=== PATIENT | male | born 1930 | race Caucasian/White ===

== ENCOUNTER 2017-07-06 23:02 | Inpatient (IN) | payer MEDICARE ==
[~2017-07-06] VITALS: Ht 185.4 cm; Wt 103.4 kg
[2017-07-06 00:15] VITALS: BP 117/72
--- NOTE | 2017-07-06 23:15 | NUR ---
Pt karolina from [facility] for medical clearance prior to admission to MHU. Pt calm and cooperative. Oriented to name. Pt able to answer simple yes and no questions and follow simple commands. Pt seen by Dr. Anderson, awaiting further orders.
--- NOTE | 2017-07-06 23:30 | NUR ---
PT STATES NO MEDS
--- NOTE | 2017-07-06 23:32 | NUR ---
FAMILY REPORTS THAT PT HAS HX OF NON-HODGKINS LYMPHOMA AND TREATED WITH CHEMO AT AGE 76.ALSO HAD LAMINECTOMY AT AGE 80. AND HIP REPLACEMENT AT 82
--- NOTE | 2017-07-07 00:02 | NUR ---
Pt medically cleared for MHU admission. Report called to ALMITA Moss. Preparing to transfer pt to the floor.
--- NOTE | 2017-07-07 06:46 | NUR ---
ADMISSION NOTE Patient is an 86 yr old male admitted from [facility] on a 5150 for Grave Disability, Danger to Others and Danger to self starting 07/06/17 @1800. According to medical records provided by [facility] Patient was taken to ER by police after patient was reported to have crossed the center divider of the [facility] free[place]. Patient was found confused, with two loaded guns, stating he was on his way to [place]. Patient admitted under the care of Dr. Hernandez and Dr. Kenney. Dr. Blanca covering psychiatrist accepted patient, No medications reported due to patient unable to recall current medications. Labs done at [facility] no labs ordered by ER on admission.
[2017-07-07 07:30] VITALS: BP 144/91
--- NOTE | 2017-07-07 12:38 | NUR ---
GPS RN NOTE: 1230: PT STRONGLY REFUSED SEROQUEL 12.5. OFFERED X2, EXPLAINED RISK AND BENEFITS. PT STILL REFUSED. STATED "I DON'T NEED TO TAKE THAT PILL AND I DON'T NEED TO BE HERE"
[2017-07-07 17:06] VITALS: BP 124/65
--- NOTE | 2017-07-07 18:05 | NUR ---
LEFT MESSAGE TO PT'S SON WESLEY TO GIVE US A CALL REGARDING LIST OF HOME MEDICATIONS IF ANY.
[2017-07-07 20:19] VITALS: BP 127/66
--- NOTE | 2017-07-08 05:59 | NUR ---
GPS/NSG Fransisco Landeros called back, stated he had no idea what his father's medication regimen was, stated his father was closed in about that information. Suggested to try to get the name of his fathers General practitioner in [place], [place] where the pt. currently resides.
[2017-07-08 07:30] VITALS: BP 111/64
[2017-07-08 07:43] LABS: BASOPHILS % (AUTO) 0.5 % (0.0-2.0); EOSINOPHILS # (AUTO) 0.2 K/uL (0.0-0.7); HEMATOCRIT 45.3 % (40-50); HEMOGLOBIN 15.4 G/DL (14.0-18.0); LYMPHOCYTES # (AUTO) 1.1 K/UL (0.8-4.8); LYMPHOCYTES % (AUTO) 14.4 % (20.5-51.5); MEAN CORPUSCULAR HEMOGLOBIN 31.2 UUG (27.0-31.0); MEAN CORPUSCULAR HGB CONC 34 g/dL (32.0-37.0); MONOCYTES # (AUTO) 0.6 K/UL (0.1-1.30); MONOCYTES % (AUTO) 8.4 % (0.0-11.0); NEUTROPHILS # (AUTO) 5.8 K/UL (1.8-8.9); NEUTROPHILS % (AUTO) 73.7 % (38.5-71.5); PLATELET COUNT (AUTO) 207 K/UL (150-450); RED BLOOD CELL COUNT(AUTO) 4.92 MIL/UL (4.7-6.1); WHITE BLOOD COUNT (AUTO) 7.7 K/UL (4.0-11.2)
[2017-07-08 07:50] LABS: ALANINE AMINOTRANSFERASE 24 U/L (16-63); ALKALINE PHOSPHATASE 72 U/L (50-136); ASPARTATE AMINOTRANSFERASE 22 U/L (15-37); BILIRUBIN,TOTAL 0.6 mg/dL (0.2-1.0); CARBON DIOXIDE 28 mmol/L (21-32); CHLORIDE 105 mmol/L (98-107); CREATININE 1.5 mg/dL (0.6-1.3); GLUCOSE 109 mg/dL (74-106); POTASSIUM 4.2 mmol/L (3.5-5.1); TOTAL PROTEIN, SERUM 7.6 g/dL (6.4-8.2); UREA NITROGEN, BLOOD 29 mg/dL (7-18)
[2017-07-08 09:41] LABS: THYROID STIMULATING HORMONE 2.338 mIU/mL (0.358-3.740)
[2017-07-08 15:05] LABS: *BILIRUBIN,URIN NEGATIVE (NEGATIVE); *BLOOD, URINE NEGATIVE (NEGATIVE); *CLARITY,URINE CLEAR (CLEAR); *COLOR,URINE YELLOW (YELLOW); *KETONES,URINE NEGATIVE (NEGATIVE); *PROTEIN,URINE 1+ (NEGATIVE); *UROBILINOGEN,URINE 0.2 E.U./dl (NORMAL); LEUKOCYTE ESTERASE ,URINE NEGATIVE (NEGATIVE); NITRITE, URINE NEGATIVE (NEGATIVE); PH,URINE 5.5 (5.0-8.0); UGLUCOSE NEGATIVE (NEGATIVE)
[2017-07-08 15:45] LABS: *CREATININE,URINE 92.6 mg/dL (30-125)
[2017-07-08 16:00] VITALS: BP 143/84
[2017-07-08 17:01] LABS: MUCUS,URINE FEW /LPF (0-FEW); SQUAMOUS EPITHELIAL CELL,UR FEW /HPF (NONE SEEN); WBC,URINE 0-3 /HPF (0-3)
--- NOTE | 2017-07-08 19:00 | NUR ---
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 PT IS CONFUSED AND FORGETFUL. 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 NEEDED SECURITY TO ESCORT PT BACK TO HIS ROOM. PT STATED THAT SINCE WE PRINTED INFORMATION ABOUT ATIVAN THAT HE WOULD TAKE MEDS, BUT ONCE HE WAS OFFERED THEM HE REFUSED ATIVAN DESPITE EXPLANATION OF NEED AND SIDE EFFECTS. "IM NOT A CHILD, I HAVE BEEN DOING THIS MY ENTIRE LIFE AND IM NOT A PATIENT HERE. YOU TAKE THE MEDICATIONS, NOT ME"
[2017-07-08 20:35] VITALS: BP 144/80
[2017-07-09 07:29] VITALS: BP 123/76
[2017-07-09 07:49] LABS: BASOPHILS % (AUTO) 0.5 % (0.0-2.0); EOSINOPHILS # (AUTO) 0.2 K/uL (0.0-0.7); EOSINOPHILS % (AUTO) 3.3 % (0.0-7.0); HEMATOCRIT 41.9 % (40-50); HEMOGLOBIN 14.1 G/DL (14.0-18.0); LYMPHOCYTES % (AUTO) 16.4 % (20.5-51.5); MEAN CORPUSCULAR HEMOGLOBIN 30.6 UUG (27.0-31.0); MEAN CORPUSCULAR HGB CONC 34 g/dL (32.0-37.0); MEAN CORPUSCULAR VOLUME 91.3 FL (82.0-92.0); MONOCYTES # (AUTO) 0.7 K/UL (0.1-1.30); MONOCYTES % (AUTO) 10.6 % (0.0-11.0); NEUTROPHILS # (AUTO) 4.2 K/UL (1.8-8.9); NEUTROPHILS % (AUTO) 69.2 % (38.5-71.5); PLATELET COUNT (AUTO) 197 K/UL (150-450); RED BLOOD CELL COUNT(AUTO) 4.59 MIL/UL (4.7-6.1); WHITE BLOOD COUNT (AUTO) 6.1 K/UL (4.0-11.2)
[2017-07-09 08:02] LABS: ALANINE AMINOTRANSFERASE 20 U/L (16-63); ALKALINE PHOSPHATASE 58 U/L (50-136); ASPARTATE AMINOTRANSFERASE 19 U/L (15-37); BILIRUBIN,TOTAL 0.5 mg/dL (0.2-1.0); CARBON DIOXIDE 27 mmol/L (21-32); CHLORIDE 109 mmol/L (98-107); CREATINE KINASE, TOTAL 142 U/L (39-308); CREATININE 1.5 mg/dL (0.6-1.3); GLUCOSE 101 mg/dL (74-106); MAGNESIUM 1.9 mg/dL (1.8-2.4); PHOSPHOROUS 3.2 mg/dL (2.5-4.9); POTASSIUM 3.9 mmol/L (3.5-5.1); TOTAL PROTEIN, SERUM 6.5 g/dL (6.4-8.2); UREA NITROGEN, BLOOD 32 mg/dL (7-18)
--- NOTE | 2017-07-09 09:14 | NUR ---
Pt refused to take Seroquel dose this morning. pt states " I will not take any medication until a doctor comes in and explains to me why I need it... you're not a doctor." Pt agreed on topical medication but nothing oral. Pt continues to refuse showering. pt denies depression, SI,HI, and AVH. pt remains confused with moments of clarity. Pt compliant with wearing mask when leaving room. Continue to monitor for safety.
--- NOTE | 2017-07-09 11:29 | NUR ---
Initial discharge instructions: Pt resides at home alone [[address],[place],[address]].Pt resides in [place] and is unable to report any family/friend contact.He has no family to contact and/or discuss discharge plans with.SW will speak with pt and MD regarding appropriate discharge plans.SW will form a safe and proper discharge plan.
--- NOTE | 2017-07-09 15:02 | NUR ---
pt continues to be confused, forgetful, and need frequent redirection. frequently argues that he is not a patient here and that we need to let him go. keeps talking in circles asking for a meeting with the solar sales energy advisor, because all he has met is busboys. continues to refuse medications "i dont need any medications, so you should take it."
[2017-07-09 17:06] VITALS: BP 124/82
[2017-07-09 20:26] VITALS: BP 134/73
[2017-07-10 07:36] VITALS: BP 167/78
--- NOTE | 2017-07-10 08:42 | NUR ---
offered morning medications to patient but strongly refused in spite of the explanations.Patient stated "Don't bother to give any medications until you bring a US sports attorney."
[2017-07-10 10:11] LABS: A/G RATIO 1.5 (0.7-1.7); ALBUMIN 3.5 g/dL (2.9-4.4); ALPHA-1-GLOBULIN 0.2 g/dL (0.0-0.4); ALPHA-2-GLOBULIN 0.7 g/dL (0.4-1.0); BETA GLOBULIN 0.8 g/dL (0.7-1.3); GAMMA GLOBULIN 0.8 g/dL (0.4-1.8); GLOBULIN, TOTAL 2.4 g/dL (2.2-3.9); M-SPIKE Not Observed g/dL (Not Observed)
[2017-07-10 16:40] VITALS: BP 150/79
[2017-07-11 07:30] VITALS: BP 115/58
--- NOTE | 2017-07-11 12:12 | NUR ---
Patient refused zyprexa 2.5mg PO , patient was reised today. IM back up zyprexa 2.5mg was given at 1133.
[2017-07-11 15:04] VITALS: BP 124/70
--- NOTE | 2017-07-11 18:06 | NUR ---
Patient took his PM medication zyprexa zydis 2.5mg PO with less prompting, showered today, no aggressive behavior noted. Will continue to monitor for safety and needs.
[2017-07-11 20:25] VITALS: BP 128/77
[2017-07-12 07:24] LABS: BASOPHILS # (AUTO) 0.1 K/uL (0.0-8.0); BASOPHILS % (AUTO) 0.8 % (0.0-2.0); EOSINOPHILS # (AUTO) 0.2 K/uL (0.0-0.7); EOSINOPHILS % (AUTO) 2.8 % (0.0-7.0); HEMATOCRIT 44.8 % (40-50); HEMOGLOBIN 15.1 G/DL (14.0-18.0); LYMPHOCYTES # (AUTO) 1.1 K/UL (0.8-4.8); LYMPHOCYTES % (AUTO) 14.1 % (20.5-51.5); MEAN CORPUSCULAR HGB CONC 34 g/dL (32.0-37.0); MEAN CORPUSCULAR VOLUME 91.6 FL (82.0-92.0); MONOCYTES # (AUTO) 0.7 K/UL (0.1-1.30); MONOCYTES % (AUTO) 8.3 % (0.0-11.0); NEUTROPHILS # (AUTO) 5.8 K/UL (1.8-8.9); PLATELET COUNT (AUTO) 196 K/UL (150-450); RED BLOOD CELL COUNT(AUTO) 4.89 MIL/UL (4.7-6.1); WHITE BLOOD COUNT (AUTO) 7.9 K/UL (4.0-11.2)
[2017-07-12 07:30] VITALS: BP 137/64
[2017-07-12 07:49] LABS: ALANINE AMINOTRANSFERASE 19 U/L (16-63); ALKALINE PHOSPHATASE 65 U/L (50-136); ASPARTATE AMINOTRANSFERASE 18 U/L (15-37); BILIRUBIN,TOTAL 0.4 mg/dL (0.2-1.0); CARBON DIOXIDE 32 mmol/L (21-32); CHLORIDE 109 mmol/L (98-107); CREATININE 1.4 mg/dL (0.6-1.3); GLUCOSE 116 mg/dL (74-106); PHOSPHOROUS 3.2 mg/dL (2.5-4.9); POTASSIUM 4.5 mmol/L (3.5-5.1); UREA NITROGEN, BLOOD 29 mg/dL (7-18)
[2017-07-12 20:22] VITALS: BP 116/63
[2017-07-12 22:00] VITALS: BP 148/85
--- NOTE | 2017-07-12 22:00 | NUR ---
PT RECEIVED FROM MHU VIA WHEELCHAIR. A/OX2. ABLE TO MAKE NEEDS KNOWN. V/S STABLE. IN NO ACUTE DISTRESS. NO C/O PAIN AT THIS TIME. ISOLATION FOR MRSA NARES IN PLACE. 1:1 SITTER AT BEDSIDE FOR SAFETY. SAFETY MEASURES IMPLEMENTED. CALL LIGHT WITHIN REACH. WILL CONT TO MONITOR.
--- NOTE | 2017-07-12 22:00 | NUR ---
GPS: TX: PATIENT TO 2ND FLOOR ROOM 223 MED SURG OVERFLOW. VIA W/C ,PATIENT IS A/O X3 AMBULATORY. ON CONTACT ISOLATION FOR MRSA NARES. COMPLIANT WITH HS MEDS. NO AGITATION NOTED THIS TIME.V/S WNL.NO PAIN OR SOB REPORTED. REPORT GIVEN TO ALFREDITO RECIO.
[2017-07-13 04:00] VITALS: BP 127/71
--- NOTE | 2017-07-13 05:45 | NUR ---
PT SLEPT MOST OF THE NIGHT. CONT TO HAVE 1:1 SITTER AT BEDSIDE FOR SAFETY. ALL NEEDS ATTENDED. SAFETY MAINTAINED. CALL LIGHT WITHIN REACH.
[2017-07-13 10:00] VITALS: BP 147/75
--- NOTE | 2017-07-13 12:56 | NUR ---
PT COMPLIANT WITH MED ADMINISTRATION, STATES NEED TO MAKE PHONE CALL TO [employer]. SITS AT BEDSIDE, CONTINUALLY TALKS TO SELF. 1:1 SITTER AT BEDSIDE. CONTACT ISOLATION MAINTAINED
[2017-07-13 15:00] VITALS: BP 144/82
--- NOTE | 2017-07-13 18:32 | NUR ---
NO CHANGES THROUGHOUT SHIFT, PT REMAINED PLEASANT AND MED COMPLIANT. ISOLATION AND 1:1 SITTER MAINTAINED. CALL LIGHT IN REACH
[2017-07-13 19:30] VITALS: BP 139/58
--- NOTE | 2017-07-13 19:35 | NUR ---
PT RECEIVED IN BED, AWAKE. PLEASANT ON APPROACH. A/OX2. ABLE TO MAKE NEEDS KNOWN. 1:1 SITTER AT BEDSIDE FOR SAFETY. SAFETY MEASURE IMPLEMENTED. CALL LIGHT WITHIN REACH.
[2017-07-14 04:59] VITALS: BP 146/74
--- NOTE | 2017-07-14 06:00 | NUR ---
END OF SHIFT NOTES. PT SLEPT WELL THROUGHOUT SHIFT. 1:1 SITTER AT BEDSIDE FOR SAFETY. ISOLATION MAINTAINED. ALL NEEDS ATTENDED. SAFETY MAINTAINED.
[2017-07-14 08:17] VITALS: BP 131/73
[2017-07-14 16:12] VITALS: BP 157/75
[2017-07-14 20:09] VITALS: BP 156/76
--- NOTE | 2017-07-15 | NUR ---
Pt up on side of bed requesting ronitich. Denies any pain, headaches, shortness of breathe, or discomfort at this time. 1 on 1 sitter at bedside.
[2017-07-15 05:20] VITALS: BP 147/85
--- NOTE | 2017-07-15 06:44 | NUR ---
Pt alert, awake in room. No acute distress or pain noted. Able to void without difficulty. States he wants to talk to the fbi regarding a meeting. Unable to describe exact details at this time. Able to sleep only two and a half hours between 0000 and 0600. Able to ambulate with FWW without difficulty.
[2017-07-15 07:03] LABS: BASOPHILS % (AUTO) 0.4 % (0.0-2.0); EOSINOPHILS # (AUTO) 0.2 K/uL (0.0-0.7); EOSINOPHILS % (AUTO) 3.2 % (0.0-7.0); HEMATOCRIT 45.2 % (40-50); HEMOGLOBIN 15.4 G/DL (14.0-18.0); LYMPHOCYTES % (AUTO) 13.7 % (20.5-51.5); MEAN CORPUSCULAR HGB CONC 34 g/dL (32.0-37.0); MEAN CORPUSCULAR VOLUME 90.9 FL (82.0-92.0); MONOCYTES # (AUTO) 0.6 K/UL (0.1-1.30); MONOCYTES % (AUTO) 8.8 % (0.0-11.0); NEUTROPHILS # (AUTO) 5.3 K/UL (1.8-8.9); NEUTROPHILS % (AUTO) 73.9 % (38.5-71.5); PLATELET COUNT (AUTO) 223 K/UL (150-450); RED BLOOD CELL COUNT(AUTO) 4.98 MIL/UL (4.7-6.1); WHITE BLOOD COUNT (AUTO) 7.1 K/UL (4.0-11.2)
[2017-07-15 07:24] LABS: ALANINE AMINOTRANSFERASE 22 U/L (16-63); ALKALINE PHOSPHATASE 66 U/L (50-136); ASPARTATE AMINOTRANSFERASE 21 U/L (15-37); BILIRUBIN,TOTAL 0.4 mg/dL (0.2-1.0); CARBON DIOXIDE 26 mmol/L (21-32); CHLORIDE 104 mmol/L (98-107); CREATININE 1.5 mg/dL (0.6-1.3); GLUCOSE 106 mg/dL (74-106); MAGNESIUM 1.9 mg/dL (1.8-2.4); PHOSPHOROUS 3.2 mg/dL (2.5-4.9); POTASSIUM 4.2 mmol/L (3.5-5.1); TOTAL PROTEIN, SERUM 7.3 g/dL (6.4-8.2); UREA NITROGEN, BLOOD 32 mg/dL (7-18)
--- NOTE | 2017-07-15 08:06 | NUR ---
pt refusing vitals at this time will try again
[2017-07-15 08:23] VITALS: BP 136/75
[2017-07-15 15:40] VITALS: BP 141/71
--- NOTE | 2017-07-15 18:53 | NUR ---
NO CHANGES NOTED THROUGHOUT SHIFT, CONTACT ISOLATION AND 1:1 SITTER MAINTAINED, CALL LIGHT IN REACH
--- NOTE | 2017-07-15 19:00 | NUR ---
Pt alert awake and oriented to self and date of . 1 on 1 sitter at bedside. BP 118/73. 95% RA. Call light placed within reach. Socks applied. No pain noted at this time.
[2017-07-15 20:00] VITALS: BP 118/73
--- NOTE | 2017-07-16 01:00 | NUR ---
Pt asleep at this time. Temazepam effective with no agitation or insomnia present. No acute distress noted.
--- NOTE | 2017-07-16 08:00 | NUR ---
Awake, alert, oriented x 3, forgetful, able to verbalize needs appropriately, pleasant and calm. 1:1 sitter at bedside
[2017-07-16 12:00] VITALS: BP 133/71
--- NOTE | 2017-07-16 12:00 | NUR ---
With fair appetite. Calm and cooperative with care
[2017-07-16 16:00] VITALS: BP 156/67
--- NOTE | 2017-07-16 18:58 | NUR ---
No suicidal ideation. 1:1 sitter at bedside.
--- NOTE | 2017-07-16 19:00 | NUR ---
RECD PT IN BED,ALERT AND ABLE TO MAKE NEEDS KNOWN,SITTER AT BEDSIDE, ON 1:1 SITTER ,52/50 GRAVELY DISABLE ,HOLD IS UP ON 07/23/17.ON CONTACT ISOLATION FOR MRSA NARES, PRECAUTIONARY MEASURES OBSERVED.RESTIN FAIRLY WELL .
[2017-07-16 19:50] VITALS: BP 142/69
--- NOTE | 2017-07-16 22:00 | NUR ---
RECEIVED SBAR REPORT FROM RACHELLE/MAINTENANCE OF WAY SUPERVISOR,PT'S A/A/O X3-4 ON BED REST COMFORTABLY,DENIED OF PAIN.1:1 SITTER @ ALL TIMES FOR SAFETY.PER PT STATED THAT"I CAN'T SLEEP";OFFERED PT FOR SLEEPING PILL AND HE AGREED,WILL GIVE IT.SKIN CARE TO PT;EDUCATED TO PT;HE VERBALIZED UNDERSTANDING AND COOPERATIVE NOTED.KEPT COMFORT,CLOSELY MONITORING TO PT.
--- NOTE | 2017-07-17 06:00 | NUR ---
PT'S SITTING ON BED;DENIED OF PAIN BUT STATED THAT "I DON'T NEED ANYTHING ELSE";LATER PT REQUESTED TO TAKE A SHOWER;AFTER THAT HE FELT BETTER.PT'S ABLE TO SLEEP FOR 2 HOURS IN THE SHIFT.REPEATED MRSA NARES PROTOCOL;EDUCATED TO PT;HE'S COOPERATIVE NOTED.1:1 SITTER AT THE BEDSIDE.
--- NOTE | 2017-07-17 07:45 | NUR ---
PT IN BED WITH EYES CLOSED, AWAKENS UPON ENTRY. IN NO ACUTE DISTRESS, VERY PLEASANT. ACCORDING TO DIRECTOR OF INSTITUTIONAL SALES, ONLY SLEPT 2 HOURS AND WAS AGITATED EARLIER THIS AM, HAD A SHOWER AND IS NOW IN A BETTER MOOD. NO NEEDS AT THIS TIME, CONTACT ISOLATION MAINTAINED, REPEAT MRSA SENT. 1:1 SITTER AT BEDSIDE
[2017-07-17 08:00] VITALS: BP 138/70
[2017-07-17 11:17] VITALS: BP 113/74
[2017-07-17 15:03] VITALS: BP 148/71
--- NOTE | 2017-07-17 17:52 | NUR ---
PT MORE AGITATED THEN EARLIER, EXPLAINED WHAT THE MEDICATIONS WERE FOR AND THE SIDE EFFECTS WERE EXPLAINED TO PATIENT. PT TOOK ZYPREXA BUT ASKED TO LEAVE DEPAKENE AT BEDSIDE. I TOLD THE PATIENT THAT I COULD NOT LEAVE THE MEDICATION AND THAT HE HAD TO TAKE IT WITH ME IN THE ROOM HE BEGAN TO GET AGITATED, DEMANDING TO SPEAK TO HIS PHYSICIAN. NAME OF PHYSICIAN WAS GIVEN BUT COULD NOT RECALL PHONE NUMBER. EXPLAINED TO PATIENT THAT IF MEDICATION WAS NOT TAKEN, AN INJECTION WOULD BE GIVEN ORDERED. PT THREW HANDS IN THE AIR AND AGREED TO TAKE THE MEDICATION.
[2017-07-17 19:33] VITALS: BP 152/70
--- NOTE | 2017-07-17 20:00 | NUR ---
AWAKE,ALERT UP AND ABOUT IN BED.SITTER AT BEDSIDE BILATERAL GROIN RED NYSTATIN OINTMENT APPLIED.RESTING COMFORTABLY.IN NO ACUTE DISTRESS.
--- NOTE | 2017-07-18 06:00 | NUR ---
slept most of the nite
[2017-07-18 06:05] VITALS: BP 121/66
[2017-07-18 07:31] VITALS: BP 139/71
--- NOTE | 2017-07-18 08:00 | NUR ---
RECEIVED AWAKE ALERT COOPERATIVE, 1:1 SITTER AT BED SIDE
[2017-07-18 11:38] VITALS: BP 139/94
--- NOTE | 2017-07-18 12:11 | NUR ---
dr cotter visiting
[2017-07-18 15:30] VITALS: BP 150/81
--- NOTE | 2017-07-18 17:34 | NUR ---
PATIENT HAS FREQUENT CONVERSATIONS WITH SELF OR SOMEONE NOT IN ROOM ATTEMPT TO REDIRECT
--- NOTE | 2017-07-18 18:35 | NUR ---
ALL NEEDS MET STABLE ON Q1 HOUR ROUNDS, CARDIO VASCULAR STATUS STABLE, ISOLATION MAINTAINED, FALL PRECAUTIONS MAINTAINED
[2017-07-18 19:24] VITALS: BP 124/64
--- NOTE | 2017-07-18 20:00 | NUR ---
AWAKE ALERT X1 COOPERATIVE .RESTING COMFORTABLY,SITTER AT BEDSIDE.IN NO ACUTE DISTRESS.NO COMPLAINTS MADE.
[2017-07-19 04:05] VITALS: BP 120/61
--- NOTE | 2017-07-19 05:33 | NUR ---
SLEPT AT LONG INTERVALS.TALKING TO HIMSELF. SITTER AT BEDSIDE.
--- NOTE | 2017-07-19 07:26 | NUR ---
RECEIVED AWAKE ALERT TO NAME, 1:1 SITTER AT BEDSIDE, SAFETY PRECAUTIONS MAINTAINED
[2017-07-19 08:00] VITALS: BP 124/69
--- NOTE | 2017-07-19 11:20 | NUR ---
report received from Selene RECIO and took over care, awake alert on the phone, on 1;1 sitter, safety measures maintained
[2017-07-19 15:29] VITALS: BP 132/60
--- NOTE | 2017-07-19 16:00 | NUR ---
sitting at the edge of bed, talking to himself or to someone that is not there with him, tried to redirect, pleasant and appreciative, contact isolation for MRSA of nares maintained, on 1:1 sitter, appetite good and taking fluids well
--- NOTE | 2017-07-19 18:19 | NUR ---
resting, no aggressive behavior noted, compliant with meds and care, no distress noted, sitter in the room
[2017-07-19 19:27] VITALS: BP 122/64
--- NOTE | 2017-07-19 19:40 | NUR ---
PT RECEIVED IN BED, AWAKE. A/OX1. ABLE TO MAKE NEEDS KNOWN. 1:1 SITTER AT BEDSIDE FOR SAFETY. V/S STABLE. IN NO ACUTE DISTRESS. NO C/O PAIN AT THIS TIME. SAFETY MEASURES IMPLEMENTED. CALL LIGHT WITHIN REACH.
[2017-07-20 05:49] VITALS: BP 125/64
--- NOTE | 2017-07-20 05:52 | NUR ---
END OF SHIFT NOTES. PT SLEPT WELL THROUGHOUT SHIFT. 1:1 SITTER AT BEDSIDE FOR SAFETY. IN STABLE CONDITION. ISOLATION PRECAUTIONS MAINTAINED. ALL NEEDS ATTENDED. SAFETY MAINTAINED. CALL LIGHT WITHIN REACH.
[2017-07-20 06:41] LABS: BASOPHILS % (AUTO) 0.6 % (0.0-2.0); EOSINOPHILS # (AUTO) 0.3 K/uL (0.0-0.7); EOSINOPHILS % (AUTO) 3.7 % (0.0-7.0); HEMATOCRIT 43.5 % (36.7-47.1); HEMOGLOBIN 14.9 g/dL (12.5-16.3); LYMPHOCYTES % (AUTO) 14.3 % (20.5-51.5); MEAN CORPUSCULAR HEMOGLOBIN 31.4 uug (23.8-33.4); MEAN CORPUSCULAR HGB CONC 34 g/dL (32.5-36.3); MEAN CORPUSCULAR VOLUME 91.4 fL (73.0-96.2); MONOCYTES # (AUTO) 0.7 K/uL (2.0-10.0); MONOCYTES % (AUTO) 10.6 % (0.0-11.0); NEUTROPHILS # (AUTO) 4.8 K/uL (1.8-8.9); NEUTROPHILS % (AUTO) 70.8 % (38.5-71.5); PLATELET COUNT (AUTO) 195 K/uL (152-348); RED BLOOD CELL COUNT(AUTO) 4.76 MIL/uL (4.06-5.63); WHITE BLOOD COUNT (AUTO) 6.8 K/uL (3.6-10.2)
[2017-07-20 06:54] LABS: ALANINE AMINOTRANSFERASE 21 U/L (16-63); ALKALINE PHOSPHATASE 70 U/L (50-136); ASPARTATE AMINOTRANSFERASE 17 U/L (15-37); BILIRUBIN,TOTAL 0.5 mg/dL (0.2-1.0); CARBON DIOXIDE 32 mmol/L (21-32); CHLORIDE 106 mmol/L (98-107); CREATININE 1.5 mg/dL (0.6-1.3); GLUCOSE 100 mg/dL (74-106); POTASSIUM 4.1 mmol/L (3.5-5.1); TOTAL PROTEIN, SERUM 7.4 g/dL (6.4-8.2); UREA NITROGEN, BLOOD 27 mg/dL (7-18); VALPROIC ACID 18 ug/mL (50-100)
[2017-07-20 08:00] VITALS: BP 135/68
[2017-07-20 15:25] VITALS: BP 140/68
--- NOTE | 2017-07-20 19:36 | NUR ---
PATIENT SITTING BED, WATCHING TV. PATIENT PLEASANT AND CALM AND INTERACTIVE.NO BEHAVIORAL ISSUES NOTED. NO C/ PAIN OR ANY DISCOMFORT. 1:1 SITTER AT THE BED SIDE.WILL CONTINUE TO MONITOR.
[2017-07-20 20:00] VITALS: BP 141/63
--- NOTE | 2017-07-21 06:36 | NUR ---
PATIENT AWAKE MOST OF THE NIGHT , TALKING . NO BEHAVIORAL ISSUES NOTED, SLEPT FOR 2 HRS. 1:1 SITTER AT THE BED SIDE. CONTINUING ON CONTINUING ON CONTACT ISOLATION FOR MRSA OF NARES
[2017-07-21 07:22] VITALS: BP 99/66
[2017-07-21 12:03] VITALS: BP 118/62
[2017-07-21 15:44] VITALS: BP 139/72
--- NOTE | 2017-07-21 19:30 | NUR ---
PATIENT , SITTING ON BED , CALM AND COOPERATIVE, WATCHING TV. TALKING WITHOUT ANY CONNECTING IDEAS. 1:1 SITTER AT THE BED SIDE
[2017-07-21 19:58] VITALS: BP 134/65
--- NOTE | 2017-07-22 06:56 | NUR ---
PATIENT AWAKE MOST OF THE NIGHT, TALKING. SLEPT F0R 1 HR. CONTACT ISOLATION FOR MRSA OF NARES OBSERVED. 1:1 SITTER AT THE BED SIDE FOR SAFETY. NO BEHAVIORAL ISSUES NOTED DURING THE SHIFT
[2017-07-22 07:38] VITALS: BP 136/66
[2017-07-22 11:29] VITALS: BP 147/59
[2017-07-22 15:11] VITALS: BP 133/68
[2017-07-22 19:47] VITALS: BP 135/63
--- NOTE | 2017-07-23 03:37 | NUR ---
RECEIVED PATIENT SITTING COMFORTABLY IN BED. HE WAS REFUSING TO TAKE MEDS LAST NIGHT NEEDED ENCOURAGEMENT AND REDIRECTION. TALKING ABOUT TO TAKE THE PRESIDENT'S CALL AND RELAY THE MESSAGE TO HIM. HE SLEPT ON AND OFF, WOKE UP PACING IN THE ROOM GOT MAD TO THE STAFF WHEN APPROACHED. OTHERWISE NO SIGNS OF THREAT TO HIMSELF AND OTHERS. VITAL SIGNS ARE STABLE. 1:1 SITTER AT BEDSIDE.
[2017-07-23 08:54] VITALS: BP 145/63
--- NOTE | 2017-07-23 10:28 | NUR ---
DC Note: Patient will be discharged today to [facility] [[address] [place] [address]; ] via ambulance at 12:00 pm. Spoke with Марина at the facility who stated they would accept the patient today. Spoke with patient's son, Fransisco [phone] who is aware and agreeable with discharge plans. Patient will follow up with (Psychiatrist) and (Molding And Trim Installer) at the facility.
[2017-07-23 11:43] VITALS: BP 117/61
--- NOTE | 2017-07-23 13:59 | NUR ---
Discharge instructions given to patient. Report given to LACI RECIO from [facility]. Belongings given and opened infront of patient with BROACH OPERATOR at bedside. Valuables signed. Pt is in no acute distress. Pt cooperative. Pt aware of discharge plan and instructions. Pictures update on pts skin issues. Pt refused vaccination.
== END 2017-07-23 13:45 | DRG 885 ==
LOC: ER 23:02 → GPS 23:45 → GPSOV 07-12 22:09
PROVIDERS: ADMIT Psychiatry & Neurology Psychosomatic Medicine; ATTEND Internal Medicine
DX: F23 Brief psychotic disorder (principal); N17.0 Acute kidney failure with tubular necrosis; N18.9 Chronic kidney disease, unspecified; E44.1 Mild protein-calorie malnutrition; F03.90 Unspecified dementia, unspecified severity, without behavioral disturbance, psychotic disturbance, mood disturbance, and anxiety; Z85.72 Personal history of non-Hodgkin lymphomas; Z22.322 Carrier or suspected carrier of Methicillin resistant Staphylococcus aureus; L21.0 Seborrhea capitis; Z91.14 Patient's other noncompliance with medication regimen; E88.09 Other disorders of plasma-protein metabolism, not elsewhere classified; Z68.30 Body mass index [BMI] 30.0-30.9, adult; Z96.649 Presence of unspecified artificial hip joint; N28.1 Cyst of kidney, acquired; Z87.81 Personal history of (healed) traumatic fracture; E78.5 Hyperlipidemia, unspecified; Z92.21 Personal history of antineoplastic chemotherapy; Z98.890 Other specified postprocedural states
CPT/HCPCS: 36415; 76770; 80164; 83735; 83970; 84100; 84155; 84156; 84165; 84300; 84443; 85025; 87086; A4663; J2358

== ENCOUNTER 2017-11-08 17:05 | Inpatient (IN) | payer MEDICARE, MEDICAID ==
[~2017-11-08] VITALS: Ht 182.9 cm; Wt 93.9 kg
[2017-11-08] MEDS ORDERED: MAGN400O6 PO (17:13)
[2017-11-08] MEDS ORDERED: DOCU100C36 PO (17:13)
[2017-11-08] MEDS ORDERED: DONE5TAB7 PO (17:13)
[2017-11-08] MEDS ORDERED: ACET325T53 PO (17:13)
[2017-11-08 18:00] LABS: BASOPHILS % (AUTO) 0.6 % (0.0-2.0); EOSINOPHILS # (AUTO) 0.3 K/uL (0.0-0.7); EOSINOPHILS % (AUTO) 4.9 % (0.0-7.0); HEMATOCRIT 38.9 % (36.7-47.1); HEMOGLOBIN 13.2 g/dL (12.5-16.3); LYMPHOCYTES # (AUTO) 1.1 K/uL (20.0-40.0); LYMPHOCYTES % (AUTO) 16.4 % (20.5-51.5); MEAN CORPUSCULAR HEMOGLOBIN 30.6 uug (23.8-33.4); MEAN CORPUSCULAR HGB CONC 34 g/dL (32.5-36.3); MEAN CORPUSCULAR VOLUME 89.7 fL (73.0-96.2); MONOCYTES # (AUTO) 0.7 K/uL (2.0-10.0); MONOCYTES % (AUTO) 10.3 % (0.0-11.0); NEUTROPHILS # (AUTO) 4.7 K/uL (1.8-8.9); NEUTROPHILS % (AUTO) 67.8 % (38.5-71.5); PLATELET COUNT (AUTO) 254 K/uL (152-348); RED BLOOD CELL COUNT(AUTO) 4.33 MIL/uL (4.06-5.63)
[2017-11-08 18:07] LABS: ALANINE AMINOTRANSFERASE 26 U/L (16-63); ALKALINE PHOSPHATASE 77 U/L (50-136); ASPARTATE AMINOTRANSFERASE 27 U/L (15-37); BILIRUBIN,DIRECT 0.1 mg/dL (0.0-0.2); CARBON DIOXIDE 26 mmol/L (21-32); CHLORIDE 104 mmol/L (98-107); CREATININE 1.7 mg/dL (0.6-1.3); GLUCOSE 102 mg/dL (74-106); POTASSIUM 4.1 mmol/L (3.5-5.1); TOTAL PROTEIN, SERUM 7.7 g/dL (6.4-8.2); UREA NITROGEN, BLOOD 30 mg/dL (7-18)
[2017-11-08 18:10] LABS: *BILIRUBIN,URIN NEGATIVE (NEGATIVE); *BLOOD, URINE NEGATIVE (NEGATIVE); *CLARITY,URINE CLEAR (CLEAR); *COLOR,URINE YELLOW (YELLOW); *KETONES,URINE NEGATIVE (NEGATIVE); *PROTEIN,URINE NEGATIVE (NEGATIVE); *UROBILINOGEN,URINE 0.2 E.U./dl (NORMAL); LEUKOCYTE ESTERASE ,URINE NEGATIVE (NEGATIVE); NITRITE, URINE NEGATIVE (NEGATIVE); PH,URINE 5.5 (5.0-8.0); UGLUCOSE NEGATIVE (NEGATIVE)
[2017-11-08 18:11] LABS: ACETAMINOPHEN < 2.0 ug/mL (10-30)
[2017-11-08 18:13] LABS: ETHANOL < 3 MG/DL (0-0)
[2017-11-08 18:27] LABS: SQUAMOUS EPITHELIAL CELL,UR FEW /HPF (NONE SEEN); WBC,URINE 0-3 /HPF (0-3)
[2017-11-08 18:28] LABS: MUCUS,URINE MANY /LPF (0-FEW)
[2017-11-08 18:30] LABS: BILIRUBIN,TOTAL 0.2 mg/dL (0.2-1.0)
[2017-11-08 18:32] LABS: *AMPHETAMINE, URINE NEGATIVE (NEGATIVE); *BARBITURATE, URINE NEGATIVE (NEGATIVE); *CANNABINOID, URINE NEGATIVE (NEGATIVE); *COCCAINE, URINE NEGATIVE (NEGATIVE); *OPIATE, URINE NEGATIVE (NEGATIVE); *PHENCYCLIDINE SCREEN,URINE NEGATIVE (NEGATIVE)
--- NOTE | 2017-11-08 18:37 | NUR ---
pt transfered to mhu in stable condition.
--- NOTE | 2017-11-08 18:45 | NUR ---
RECEIVED FOR ADMISSION 87 YEARS OLD MALE FROM ED BY PATRICIA TO ROOM 139 B PLACED UP ON THE CHAIR WEIGHED AND VITALS CHECKED PATIENT IS ALERT AND ORIENTED COOPERATIVE STATED THAT HE ALREADY INFORMED HIS FRIEND THAT HE IS HERE AND WHEN ASKED TO PROVIDE NAMES AND PHONE NUMBERS SO THAT I CAN FOLLOW UP HE STATED THAT HE DID NOT WANT ANYONE NOTIFIED THAT HE IS HERE.SANWISHES GIVEN FOR DINNER AND HE IS SITTING ON THE CHAIR IN THE HALLWAY EATING HIS DINNER ADMISSION OF THIS PATIENT ENDORSED.
[2017-11-08] MEDS ORDERED: MAGNESIUM HYDROXIDE 30 ML LIQUID UDC PO PRN (19:15)
[2017-11-08] MEDS ORDERED: ACETAMINOPHEN 325 MG TABLET PO PRN (19:15)
[2017-11-08] MEDS ORDERED: MAG HYDROX/AL HYDROX/SIMETH 30 ML LIQUID UDC PO PRN (19:15)
[2017-11-08 21:17] VITALS: BP 126/52
[2017-11-08] MEDS: TEMAZEPAM 7.5 MG CAPSULE PO PRN (22:06)
--- NOTE | 2017-11-08 23:00 | NUR ---
received to care, on a 72 hour hold, for gravely disabled, from the emergency room, a transfer from [facility]. 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 upon arrival, he was cooperative, but anxious, stating once again that he is not a patient there, and is here only for a medical screening for his new job. has poor insight. difficult to redirect, or orient to reality. PRN restoril was given at 2206, and, as of 2299. he appears to be asleep. no distress noted. will continue to monitor closely.
[2017-11-09 07:30] VITALS: BP 135/69
[2017-11-09] MEDS: DOCUSATE SODIUM 100 MG CAPSULE PO SCH (08:48)
[2017-11-09 08:57] LABS: BASOPHILS % (AUTO) 0.5 % (0.0-2.0); EOSINOPHILS # (AUTO) 0.4 K/uL (0.0-0.7); HEMATOCRIT 40.2 % (36.7-47.1); HEMOGLOBIN 13.8 g/dL (12.5-16.3); LYMPHOCYTES # (AUTO) 0.9 K/uL (20.0-40.0); LYMPHOCYTES % (AUTO) 14.3 % (20.5-51.5); MEAN CORPUSCULAR HGB CONC 34 g/dL (32.5-36.3); MEAN CORPUSCULAR VOLUME 90.2 fL (73.0-96.2); MONOCYTES # (AUTO) 0.5 K/uL (2.0-10.0); MONOCYTES % (AUTO) 8.2 % (0.0-11.0); NEUTROPHILS # (AUTO) 4.5 K/uL (1.8-8.9); PLATELET COUNT (AUTO) 243 K/uL (152-348); RED BLOOD CELL COUNT(AUTO) 4.46 MIL/uL (4.06-5.63); WHITE BLOOD COUNT (AUTO) 6.4 K/uL (3.6-10.2)
[2017-11-09 09:31] LABS: ALANINE AMINOTRANSFERASE 27 U/L (16-63); ALKALINE PHOSPHATASE 72 U/L (50-136); ASPARTATE AMINOTRANSFERASE 27 U/L (15-37); BILIRUBIN,TOTAL 0.5 mg/dL (0.2-1.0); CARBON DIOXIDE 25 mmol/L (21-32); CHLORIDE 107 mmol/L (98-107); CREATININE 1.4 mg/dL (0.6-1.3); GLUCOSE 110 mg/dL (74-106); MAGNESIUM 1.8 mg/dL (1.8-2.4); PHOSPHOROUS 3.2 mg/dL (2.5-4.9); POTASSIUM 3.9 mmol/L (3.5-5.1); TOTAL PROTEIN, SERUM 7.4 g/dL (6.4-8.2); UREA NITROGEN, BLOOD 27 mg/dL (7-18)
[2017-11-09 16:00] VITALS: BP 120/53
--- NOTE | 2017-11-09 16:38 | NUR ---
Initial Discharge Note:Pt resides at [facility] ([address] [place] [address]; ). BRENNEN spoke to Марина at [facility] and she stated that the pt can come back. BRENNEN will follow up with MD and patient to discuss most appropriate dc plans. SW will form a safe and proper discharge. Pt does not want his son involved in his dc planning.
[2017-11-09] MEDS ORDERED: TRIAMCINOLONE ACET 0.5% CREAM 15 GM TUBE TP SCH (17:00)
[2017-11-09] MEDS: risperiDONE 0.25 MG TABLET PO SCH (17:14)
[2017-11-09] MEDS: BENZTROPINE MESYLATE 0.5 MG TABLET PO SCH (17:14)
[2017-11-09] MEDS: TRIAMCINOLONE ACET 0.1% CREAM 15 GM TUBE TP SCH (17:35)
[2017-11-09] MEDS: LORAZEPAM 0.5 MG TABLET PO PRN (20:34)
--- NOTE | 2017-11-09 20:35 | NUR ---
gps: patient stated i want go home. i don't like to be hear. banging on the bed side table. ativan 0.5 mg po given.
[2017-11-09 20:50] VITALS: BP 107/75
--- NOTE | 2017-11-09 21:35 | NUR ---
GPS: PATIENT IS CALM NOW. PRN EFFECTIVE FOR AGITATION.
--- NOTE | 2017-11-10 06:24 | NUR ---
GPS: REMAIN CALM AND COOPERATIVE AFTER ATIVAN 0.5 MG PO GIVEN @ 20:35 PM. SLEPT 6 HRS THROUGH THE NIGHT.
[2017-11-10 07:30] VITALS: BP 132/69
[2017-11-10] MEDS: risperiDONE 0.25 MG TABLET PO SCH ×2 (08:34→16:36)
[2017-11-10] MEDS: BENZTROPINE MESYLATE 0.5 MG TABLET PO SCH ×2 (08:34→16:36)
[2017-11-10] MEDS: TRIAMCINOLONE ACET 0.1% CREAM 15 GM TUBE TP SCH ×2 (08:37→16:36)
[2017-11-10] MEDS: DOCUSATE SODIUM 100 MG CAPSULE PO SCH (08:54)
[2017-11-10] MEDS: CHOLECALCIFEROL 1,000 UNIT TABLET PO SCH (12:19)
[2017-11-10 15:04] LABS: BASOPHILS % (AUTO) 0.5 % (0.0-2.0); EOSINOPHILS # (AUTO) 0.4 K/uL (0.0-0.7); EOSINOPHILS % (AUTO) 6.8 % (0.0-7.0); HEMATOCRIT 39.7 % (36.7-47.1); HEMOGLOBIN 13.4 g/dL (12.5-16.3); LYMPHOCYTES # (AUTO) 0.8 K/uL (20.0-40.0); LYMPHOCYTES % (AUTO) 14.8 % (20.5-51.5); MEAN CORPUSCULAR HEMOGLOBIN 30.3 uug (23.8-33.4); MEAN CORPUSCULAR HGB CONC 34 g/dL (32.5-36.3); MEAN CORPUSCULAR VOLUME 89.9 fL (73.0-96.2); MONOCYTES # (AUTO) 0.5 K/uL (2.0-10.0); NEUTROPHILS # (AUTO) 3.9 K/uL (1.8-8.9); NEUTROPHILS % (AUTO) 68.9 % (38.5-71.5); PLATELET COUNT (AUTO) 226 K/uL (152-348); RED BLOOD CELL COUNT(AUTO) 4.42 MIL/uL (4.06-5.63); WHITE BLOOD COUNT (AUTO) 5.6 K/uL (3.6-10.2)
[2017-11-10 15:14] LABS: ALANINE AMINOTRANSFERASE 26 U/L (16-63); ALKALINE PHOSPHATASE 68 U/L (50-136); ASPARTATE AMINOTRANSFERASE 24 U/L (15-37); BILIRUBIN,TOTAL 0.3 mg/dL (0.2-1.0); CARBON DIOXIDE 31 mmol/L (21-32); CHLORIDE 106 mmol/L (98-107); CREATINE KINASE, TOTAL 227 U/L (39-308); CREATININE 1.3 mg/dL (0.6-1.3); GLUCOSE 122 mg/dL (74-106); MAGNESIUM 2.1 mg/dL (1.8-2.4); PHOSPHOROUS 3.5 mg/dL (2.5-4.9); TOTAL PROTEIN, SERUM 6.9 g/dL (6.4-8.2); UREA NITROGEN, BLOOD 26 mg/dL (7-18)
[2017-11-10 16:49] VITALS: BP 141/63
[2017-11-10 20:24] VITALS: BP 101/59
[2017-11-10] MEDS: TEMAZEPAM 7.5 MG CAPSULE PO PRN (21:05)
[2017-11-11 07:30] VITALS: BP 135/68
[2017-11-11] MEDS: LORAZEPAM 0.5 MG TABLET PO PRN (08:02)
[2017-11-11] MEDS: risperiDONE 0.5 MG TABLET PO SCH ×2 (08:48→16:58)
[2017-11-11] MEDS: CHOLECALCIFEROL 1,000 UNIT TABLET PO SCH (08:48)
[2017-11-11] MEDS: BENZTROPINE MESYLATE 0.5 MG TABLET PO SCH ×2 (08:48→16:59)
[2017-11-11] MEDS: TRIAMCINOLONE ACET 0.1% CREAM 15 GM TUBE TP SCH ×2 (08:48→17:00)
[2017-11-11] MEDS: DOCUSATE SODIUM 100 MG CAPSULE PO SCH (08:48)
[2017-11-11] MEDS ORDERED: risperiDONE 0.25 MG TABLET PO SCH (09:00)
[2017-11-11 10:57] LABS: *BILIRUBIN,URIN NEGATIVE (NEGATIVE); *BLOOD, URINE NEGATIVE (NEGATIVE); *CLARITY,URINE CLEAR (CLEAR); *COLOR,URINE YELLOW (YELLOW); *KETONES,URINE NEGATIVE (NEGATIVE); *PROTEIN,URINE NEGATIVE (NEGATIVE); *UROBILINOGEN,URINE 0.2 E.U./dl (NORMAL); LEUKOCYTE ESTERASE ,URINE NEGATIVE (NEGATIVE); NITRITE, URINE NEGATIVE (NEGATIVE); UGLUCOSE NEGATIVE (NEGATIVE)
[2017-11-11 11:07] LABS: BACTERIA,URINE NONE SEEN /HPF (NONE SEEN); RBC,URINE 0-3 /HPF (0-3); SQUAMOUS EPITHELIAL CELL,UR FEW /HPF (NONE SEEN); WBC,URINE 0-3 /HPF (0-3)
[2017-11-11 11:53] LABS: *CREATININE,URINE 91.3 mg/dL (30-125); *URINE TOTAL PROTEIN RANDOM 18.4 mg/dL (<150/24HR)
[2017-11-11] MEDS: DIVALPROEX 125 MG TABLET.DR PO SCH ×2 (14:58→21:00)
[2017-11-11 16:17] VITALS: BP 146/61
[2017-11-11 20:00] VITALS: BP 125/56
[2017-11-11] MEDS ORDERED: risperiDONE 1 MG TABLET PO SCH (21:00)
--- NOTE | 2017-11-12 01:41 | NUR ---
RECEIVED PATIENT IN HIS BED AWAKE. HE WAS NOTED A/O X 1. ABLE TO AMBULATE WITH A WALKER. HE REFUSED [facility] MEDICATION X2. HE WAS NOTED DELUSIONAL. DEPRESSES MOOD. HAVING VISUAL AND AUDITORY HALLUCINATION, HE STATED, "BE CAREFUL... THERE ARE MANY PEOPLE OUTSIDE THAT WINDOW. THEY HAVE GUNS". PT DENIES SI OR HI. PATIENT WAS REDIRECTED. TEACHING WAS PROVIDED. SAFETY WAS EMPHASIS. WILL CONTINUE TO MONITOR.
--- NOTE | 2017-11-12 07:26 | NUR ---
PATIENT SLEPT FOR APPROX 4.30 HRS THROUGH THE NIGHT. HE CONTINUE CONFUSED, DISORIENTED, LABILE. NO AGGRESSIVE COMBATIVE BX NOTED DURING THE SHIFT.
[2017-11-12 07:30] VITALS: BP 136/64
[2017-11-12] MEDS: LORAZEPAM 0.5 MG TABLET PO PRN (08:07)
[2017-11-12] MEDS: BENZTROPINE MESYLATE 0.5 MG TABLET PO SCH ×2 (08:41→16:35)
[2017-11-12] MEDS: DOCUSATE SODIUM 100 MG CAPSULE PO SCH (08:41)
[2017-11-12] MEDS: risperiDONE 0.5 MG TABLET PO SCH ×2 (08:41→16:35)
[2017-11-12] MEDS: DIVALPROEX 125 MG TABLET.DR PO SCH ×2 (08:41→20:50)
[2017-11-12] MEDS: CHOLECALCIFEROL 1,000 UNIT TABLET PO SCH (08:42)
[2017-11-12] MEDS: TRIAMCINOLONE ACET 0.1% CREAM 15 GM TUBE TP SCH ×2 (08:42→16:35)
[2017-11-12] MEDS: MUPIROCIN 2% OINT 22 GM TUBE NS SCH ×2 (15:15→20:51)
[2017-11-12 16:55] VITALS: BP 153/93
--- NOTE | 2017-11-12 17:35 | NUR ---
GPS: Nursing Notes: Thought Disorder: Patient is awake and responding to his name, impaired judgment , believes that there is nothing wrong with him, refusing his medications, refusing his treatment for MRSA-Nares, Bactroban 2% oint, "No, I am fine.. I do not need it..", explained the reason for the medication, but continue to refuse, "I am leaving in a few hours...", gets easily irritable when redirected, unable to formulate a viable plan for self care, continue with treatment plan.
[2017-11-12 20:13] VITALS: BP 146/70
[2017-11-12] MEDS: risperiDONE 1 MG TABLET PO SCH (20:50)
[2017-11-13 07:30] VITALS: BP 120/70
[2017-11-13 08:06] LABS: ALBUMIN 3.3 g/dL (2.9-4.4); ALPHA-1-GLOBULIN 0.3 g/dL (0.0-0.4); ALPHA-2-GLOBULIN 0.8 g/dL (0.4-1.0); BETA GLOBULIN 0.9 g/dL (0.7-1.3); GAMMA GLOBULIN 1.3 g/dL (0.4-1.8); GLOBULIN, TOTAL 3.2 g/dL (2.2-3.9); M-SPIKE Not Observed g/dL (Not Observed)
[2017-11-13] MEDS: MUPIROCIN 2% OINT 22 GM TUBE NS SCH ×2 (08:43→20:59)
[2017-11-13] MEDS: DOCUSATE SODIUM 100 MG CAPSULE PO SCH (08:43)
[2017-11-13] MEDS: DIVALPROEX 125 MG TABLET.DR PO SCH ×2 (08:43→20:59)
[2017-11-13] MEDS: BENZTROPINE MESYLATE 0.5 MG TABLET PO SCH ×2 (08:43→17:00)
[2017-11-13] MEDS: TRIAMCINOLONE ACET 0.1% CREAM 15 GM TUBE TP SCH ×2 (08:44→17:00)
[2017-11-13] MEDS: risperiDONE 0.5 MG TABLET PO SCH (08:44)
[2017-11-13] MEDS: CHOLECALCIFEROL 1,000 UNIT TABLET PO SCH (08:44)
[2017-11-13 15:00] VITALS: BP 134/61
[2017-11-13] MEDS ORDERED: risperiDONE 0.5 MG TABLET PO SCH (17:00)
[2017-11-13] MEDS: risperiDONE 1 MG TABLET PO SCH ×2 (17:00→20:57)
[2017-11-13 20:51] VITALS: BP 144/58
[2017-11-14 08:00] VITALS: BP 116/60
[2017-11-14] MEDS: CHOLECALCIFEROL 1,000 UNIT TABLET PO SCH (08:49)
[2017-11-14] MEDS: risperiDONE 1 MG TABLET PO SCH ×2 (08:50→16:51)
[2017-11-14] MEDS: BENZTROPINE MESYLATE 0.5 MG TABLET PO SCH ×2 (08:50→16:50)
[2017-11-14] MEDS: DIVALPROEX 125 MG TABLET.DR PO SCH ×2 (08:50→21:08)
[2017-11-14] MEDS: TRIAMCINOLONE ACET 0.1% CREAM 15 GM TUBE TP SCH ×2 (08:58→16:51)
[2017-11-14] MEDS: DOCUSATE SODIUM 100 MG CAPSULE PO SCH (08:59)
[2017-11-14] MEDS: MUPIROCIN 2% OINT 22 GM TUBE NS SCH ×2 (08:59→21:09)
--- NOTE | 2017-11-14 09:28 | NUR ---
RECIVED PATIENT IN ROOM LAYING IN HIS BED TALKING TO SELF WHEN I WALKED IN BUT HE IS COMPLIANT WITH MEDICATIONS EVEN THOUGH HE IS DELUSIONAL REMAIN ON CONTACT ISOLATION AND PRECAUTION FOR POSITIVE MRSA NARES DUE MEDICATIONS GIVEN AND TOLERATED WELL WILL CONTINUE TO OBSERVE
--- NOTE | 2017-11-14 12:09 | NUR ---
DR ADKINS HERE TO SEE PATIENT AND AWARE OF CONTINUED DELUSION OF GRANDIOSE WITH NEW ORDERS AND NOTED
[2017-11-14] MEDS: DIVALPROEX 250 MG TABLET.DR PO SCH ×2 (12:59→13:00)
--- NOTE | 2017-11-14 13:07 | NUR ---
PATIENT REFUSED DEPAKOTE ORDERED ENCOURAGED HIM TO TAKE HIS MEDICATION SO THAT HE CAN BETTER AND BE ABLE TO LEAVE HERE SOONER HE STATED THAT HE WILL LEAVE HERE WHENEVER HE IS READY EVEN IF HE HAS TO BURN THE PLACE DOWN IN ORDER TO BE ABLE TO LEAVE. L
[2017-11-14 16:00] VITALS: BP 142/63
--- NOTE | 2017-11-14 17:30 | NUR ---
PATIENT IS COMPLIANT WITH MEDICATIONS AT THIS TIME.
[2017-11-14 20:16] VITALS: BP 132/60
[2017-11-14] MEDS ORDERED: risperiDONE 1 MG TABLET PO SCH (21:00)
--- NOTE | 2017-11-14 22:00 | NUR ---
received to care, sitting in his room, isolative, but pleasant , upon approach/ remains on contact isolation for MRSA/nares. pt denies that he has any infection, but remains compliant with isolation procedures, including wearing a mask, when he leaves his room. compliant with medications, and staff direction. as of 2199, he remains awake, talking to self. PRN sleeping medication was offered, but he declined. no distress noted. will continue to monitor closely.
--- NOTE | 2017-11-14 23:00 | NUR ---
appears to be asleep. no distress noted.
[2017-11-15 07:30] VITALS: BP 115/46
--- NOTE | 2017-11-15 08:00 | NUR ---
AWAKE SITTING ON THE BED IN HIS ROOM ALERT TO SELF COOPERATIVE AND COMPLIANT AT THIS TIME REMAIN ON CONTACT ISOLATION AND PRECAUTION FOR POSITIVE MRSA NARES PATIENT ALLOWED TREATMENT WITH BACTROBAN ORDERED AND WILL CONTINUE TO OBSERVE.
[2017-11-15] MEDS: risperiDONE 1 MG TABLET PO SCH (08:30)
[2017-11-15] MEDS: BENZTROPINE MESYLATE 0.5 MG TABLET PO SCH ×2 (08:30→17:16)
[2017-11-15] MEDS: CHOLECALCIFEROL 1,000 UNIT TABLET PO SCH (08:30)
[2017-11-15] MEDS: DIVALPROEX 125 MG TABLET.DR PO SCH ×2 (08:30→20:46)
[2017-11-15] MEDS: TRIAMCINOLONE ACET 0.1% CREAM 15 GM TUBE TP SCH ×2 (08:41→17:00)
[2017-11-15] MEDS: MUPIROCIN 2% OINT 22 GM TUBE NS SCH ×2 (08:41→20:48)
[2017-11-15] MEDS: DOCUSATE SODIUM 100 MG CAPSULE PO SCH (08:41)
[2017-11-15] MEDS: DIVALPROEX 250 MG TABLET.DR PO SCH (12:35)
[2017-11-15 15:00] VITALS: BP 128/60
[2017-11-15] MEDS ORDERED: BENZTROPINE MESYLATE 2 MG/2 ML AMPUL IM PRN (15:00)
[2017-11-15] MEDS ORDERED: MISCELLANEOUS MED XX PRN (15:00)
--- NOTE | 2017-11-15 15:00 | NUR ---
PATIENT SEEN BY DR ADKINS AND THE COURTS FOR REISE HEARING PATINT IS NOW REISED.
[2017-11-15] MEDS ORDERED: PATIENT MAY USE OWN MED- MD OK IM ONE (16:00)
--- NOTE | 2017-11-15 17:54 | NUR ---
HE IS COOPERATIVE AND COMPLIANT WITH HIS MEDICATIONS INCLUDING HIS INTRAMUSCULAR INJECTION OF INVEGA EXCEPT HE CONTINUES TO REFUSE THE CREAM FOR HIS SCABS/PSORIASIS ON HIS SCALP.WILL CONTINUE TO OBSERVE.
[2017-11-15 20:00] VITALS: BP 133/56
--- NOTE | 2017-11-15 22:00 | NUR ---
received to care, sitting in his room, isolative, but pleasant , upon approach/ remains on contact isolation for MRSA/nares. compliant with medications, and staff direction. as of 0, he remains awake, talking to self. no distress noted. will continue to monitor closely.
[2017-11-15] MEDS: TEMAZEPAM 7.5 MG CAPSULE PO PRN (23:55)
--- NOTE | 2017-11-16 00:43 | NUR ---
is now awake. PRN restoril given for insomnia. will continue to monitor closely. Addendum: 11/16/17 at 0141 by BUDDY CARRASQUILLO LVN correction/ pt was given med at 2355. as of 42, he was asleep. no distress noted.
--- NOTE | 2017-11-16 01:42 | NUR ---
continues to sleep. no distress noted.
--- NOTE | 2017-11-16 06:00 | NUR ---
slept 5.0 hours. continues to sleep. no distress noted.
[2017-11-16] MEDS: DOCUSATE SODIUM 100 MG CAPSULE PO SCH (09:00)
[2017-11-16] MEDS: BENZTROPINE MESYLATE 0.5 MG TABLET PO SCH ×2 (09:00→16:54)
[2017-11-16] MEDS: DIVALPROEX 125 MG TABLET.DR PO SCH ×2 (09:00→20:15)
[2017-11-16] MEDS: CHOLECALCIFEROL 1,000 UNIT TABLET PO SCH (09:00)
[2017-11-16] MEDS: MUPIROCIN 2% OINT 22 GM TUBE NS SCH ×2 (09:06→20:16)
[2017-11-16] MEDS: TRIAMCINOLONE ACET 0.1% CREAM 15 GM TUBE TP SCH ×2 (09:07→16:55)
--- NOTE | 2017-11-16 13:26 | NUR ---
Utilization Review: BRENNEN faxed over pt's clinicals to Claire from [employer] (phone:[phone]/fax:[phone]).
[2017-11-16] MEDS: DIVALPROEX 250 MG TABLET.DR PO SCH (13:37)
--- NOTE | 2017-11-16 14:03 | NUR ---
Gps/Child And Youth Program Assistant- Talking to himself, redirectable, contact precautions observed and in progress. Instructed to always wear mask when he leaves his room.
[2017-11-16 15:00] VITALS: BP 133/79
[2017-11-16 20:20] VITALS: BP 127/69
[2017-11-16] MEDS: TEMAZEPAM 7.5 MG CAPSULE PO PRN (23:13)
--- NOTE | 2017-11-16 23:13 | NUR ---
PRN restoril given for insomnia. will continue to monitor closely
[2017-11-17] MEDS ORDERED: Z GUARD REMEDY PASTE 57 GM TUBE TOP PRN
--- NOTE | 2017-11-17 00:10 | NUR ---
appears to be asleep. no distress noted.
--- NOTE | 2017-11-17 05:34 | NUR ---
PER NURSING RECREATION ACTIVITIES COORDINATOR OSMANI, Pt TO BE TRANSPORTED TO 2ND FLOOR, ROOM 225 FOR CHARLINE PSYCH OVERFLOW TO MAKE ROOM FOR NEW ADMISSION. REPORT GIVEN TO LIDA. SOLTIARIO FOR Pt BELONGINGS TO STAY ON MHU PER OSMANI. EVS NOTIFIED OF NEED FOR TERMINAL CLEANING OF ROOM 137 @ 0630.
[2017-11-17 07:30] VITALS: BP 132/62
[2017-11-17] MEDS: BENZTROPINE MESYLATE 0.5 MG TABLET PO SCH ×2 (08:55→16:34)
[2017-11-17] MEDS: DIVALPROEX 125 MG TABLET.DR PO SCH ×2 (08:55→21:15)
[2017-11-17] MEDS: CHOLECALCIFEROL 1,000 UNIT TABLET PO SCH (08:55)
[2017-11-17] MEDS: DOCUSATE SODIUM 100 MG CAPSULE PO SCH (08:56)
[2017-11-17] MEDS: MUPIROCIN 2% OINT 22 GM TUBE NS SCH ×2 (08:59→21:15)
[2017-11-17] MEDS ORDERED: NYSTATIN CREAM 30 GM TUBE TOP SCH (09:00)
[2017-11-17] MEDS ORDERED: NICOTINE 7 MG/24HR PATCH TD SCH (09:00)
[2017-11-17 10:24] VITALS: BP 132/62
[2017-11-17 10:42] LABS: BASOPHILS % (AUTO) 0.4 % (0.0-2.0); EOSINOPHILS # (AUTO) 0.5 K/uL (0.0-0.7); HEMATOCRIT 36.2 % (36.7-47.1); HEMOGLOBIN 12.2 g/dL (12.5-16.3); LYMPHOCYTES # (AUTO) 0.8 K/uL (20.0-40.0); LYMPHOCYTES % (AUTO) 13.6 % (20.5-51.5); MEAN CORPUSCULAR HEMOGLOBIN 30.3 uug (23.8-33.4); MEAN CORPUSCULAR HGB CONC 34 g/dL (32.5-36.3); MEAN CORPUSCULAR VOLUME 89.9 fL (73.0-96.2); MONOCYTES # (AUTO) 0.5 K/uL (2.0-10.0); MONOCYTES % (AUTO) 9.1 % (0.0-11.0); NEUTROPHILS % (AUTO) 68.9 % (38.5-71.5); PLATELET COUNT (AUTO) 196 K/uL (152-348); RED BLOOD CELL COUNT(AUTO) 4.03 MIL/uL (4.06-5.63); WHITE BLOOD COUNT (AUTO) 5.9 K/uL (3.6-10.2)
[2017-11-17 10:53] LABS: ALANINE AMINOTRANSFERASE 26 U/L (16-63); ALKALINE PHOSPHATASE 62 U/L (50-136); ASPARTATE AMINOTRANSFERASE 22 U/L (15-37); BILIRUBIN,TOTAL 0.3 mg/dL (0.2-1.0); CARBON DIOXIDE 28 mmol/L (21-32); CHLORIDE 105 mmol/L (98-107); CREATININE 1.4 mg/dL (0.6-1.3); GLUCOSE 105 mg/dL (74-106); POTASSIUM 3.9 mmol/L (3.5-5.1); TOTAL PROTEIN, SERUM 6.4 g/dL (6.4-8.2); UREA NITROGEN, BLOOD 28 mg/dL (7-18); VALPROIC ACID 29 ug/mL (50-100)
[2017-11-17] MEDS: DIVALPROEX 250 MG TABLET.DR PO SCH (12:35)
[2017-11-17 15:18] VITALS: BP 148/79
[2017-11-17] MEDS: TRIAMCINOLONE ACET 0.1% CREAM 15 GM TUBE TOP SCH (16:34)
[2017-11-17 20:52] VITALS: BP 104/61
[2017-11-18 07:30] VITALS: BP 105/64
[2017-11-18] MEDS: BENZTROPINE MESYLATE 0.5 MG TABLET PO SCH ×2 (08:34→16:34)
[2017-11-18] MEDS: CHOLECALCIFEROL 1,000 UNIT TABLET PO SCH (08:34)
[2017-11-18] MEDS: DIVALPROEX 125 MG TABLET.DR PO SCH ×2 (08:34→21:21)
[2017-11-18] MEDS: DOCUSATE SODIUM 100 MG CAPSULE PO SCH (08:37)
[2017-11-18] MEDS: TRIAMCINOLONE ACET 0.1% CREAM 15 GM TUBE TOP SCH ×2 (08:38→16:34)
[2017-11-18] MEDS: MUPIROCIN 2% OINT 22 GM TUBE NS SCH (08:38)
[2017-11-18] MEDS: DIVALPROEX 250 MG TABLET.DR PO SCH (12:16)
[2017-11-18 15:27] VITALS: BP 124/55
--- NOTE | 2017-11-18 17:00 | NUR ---
Gps/Mash Grinder- Showered self ind. after set up, refusing top. cream . Done with bactroban diana. this pm. Crustry areas on his scalp noted, skin redness, crusty areas noted, scabs on his face.Ambulates around with front wheel walker, had been cooperative with staff,
[2017-11-18 20:31] VITALS: BP 116/56
[2017-11-18 21:26] VITALS: BP 115/62
--- NOTE | 2017-11-18 23:27 | NUR ---
PATIENT RECEIVED IN ROOM AWAKE. PATIENT ALERT/ORIENTED X2. PATIENT CONFUSED. PATIENT COMPLAINT WITH MEDICATION. NO AGGRESSIVE OR COMBATIVE BEHAVIOR NOTED WILL CONTINUE TO MONITOR. IN NO APPARENT DISTRESS. PATIENT DENIES PAIN AT THIS TIME, WILL CONTINUE TO MONITOR.
[2017-11-19 07:30] VITALS: BP 126/50
[2017-11-19] MEDS: DIVALPROEX 125 MG TABLET.DR PO SCH ×3 (08:14→20:30)
[2017-11-19] MEDS: BENZTROPINE MESYLATE 0.5 MG TABLET PO SCH ×2 (08:14→16:13)
[2017-11-19] MEDS: DOCUSATE SODIUM 100 MG CAPSULE PO SCH (08:14)
[2017-11-19] MEDS: CHOLECALCIFEROL 1,000 UNIT TABLET PO SCH (08:14)
[2017-11-19] MEDS: TRIAMCINOLONE ACET 0.1% CREAM 15 GM TUBE TOP SCH ×2 (08:14→16:13)
[2017-11-19] MEDS: risperiDONE 0.5 MG TABLET PO SCH ×2 (11:45→20:31)
[2017-11-19] MEDS ORDERED: DIVALPROEX 250 MG TABLET.DR PO SCH (13:00)
[2017-11-19 15:15] VITALS: BP 126/59
[2017-11-19 20:38] VITALS: BP 114/72
[2017-11-20] MEDS: TEMAZEPAM 7.5 MG CAPSULE PO PRN (00:24)
[2017-11-20 07:30] VITALS: BP 133/66
[2017-11-20] MEDS: DOCUSATE SODIUM 100 MG CAPSULE PO SCH (09:07)
[2017-11-20] MEDS: BENZTROPINE MESYLATE 0.5 MG TABLET PO SCH ×2 (09:07→18:12)
[2017-11-20] MEDS: risperiDONE 0.5 MG TABLET PO SCH ×2 (09:07→20:44)
[2017-11-20] MEDS: CHOLECALCIFEROL 1,000 UNIT TABLET PO SCH (09:07)
[2017-11-20] MEDS: TRIAMCINOLONE ACET 0.1% CREAM 15 GM TUBE TOP SCH ×2 (09:07→18:13)
[2017-11-20] MEDS: DIVALPROEX 125 MG TABLET.DR PO SCH ×3 (09:07→20:44)
[2017-11-20 16:39] VITALS: BP 128/55
[2017-11-20 20:00] VITALS: BP 124/58
--- NOTE | 2017-11-20 22:00 | NUR ---
received to care, sitting in his room, isolative, but pleasant , upon approach. compliant with medications, and staff direction. remains delusional, and grandiose, stating he is a billionaire, and has a 3 million dollar house. as of 2199, he appears to be asleep. no distress noted. will continue to monitor closely
[2017-11-21 08:00] VITALS: BP 118/64
[2017-11-21] MEDS: TRIAMCINOLONE ACET 0.1% CREAM 15 GM TUBE TOP SCH ×2 (08:24→16:44)
[2017-11-21] MEDS: CHOLECALCIFEROL 1,000 UNIT TABLET PO SCH (08:24)
[2017-11-21] MEDS: risperiDONE 0.5 MG TABLET PO SCH ×2 (08:24→20:05)
[2017-11-21] MEDS: DOCUSATE SODIUM 100 MG CAPSULE PO SCH (08:24)
[2017-11-21] MEDS: BENZTROPINE MESYLATE 0.5 MG TABLET PO SCH ×2 (08:24→16:44)
[2017-11-21] MEDS: DIVALPROEX 125 MG TABLET.DR PO SCH ×3 (08:24→20:06)
[2017-11-21 08:38] LABS: BASOPHILS % (AUTO) 0.4 % (0.0-2.0); EOSINOPHILS # (AUTO) 0.5 K/uL (0.0-0.7); EOSINOPHILS % (AUTO) 9.7 % (0.0-7.0); HEMATOCRIT 40.2 % (36.7-47.1); HEMOGLOBIN 13.4 g/dL (12.5-16.3); LYMPHOCYTES # (AUTO) 0.8 K/uL (20.0-40.0); LYMPHOCYTES % (AUTO) 14.2 % (20.5-51.5); MEAN CORPUSCULAR HEMOGLOBIN 30.3 uug (23.8-33.4); MEAN CORPUSCULAR HGB CONC 33 g/dL (32.5-36.3); MONOCYTES # (AUTO) 0.5 K/uL (2.0-10.0); MONOCYTES % (AUTO) 8.9 % (0.0-11.0); NEUTROPHILS # (AUTO) 3.6 K/uL (1.8-8.9); NEUTROPHILS % (AUTO) 66.8 % (38.5-71.5); PLATELET COUNT (AUTO) 206 K/uL (152-348); RED BLOOD CELL COUNT(AUTO) 4.42 MIL/uL (4.06-5.63); WHITE BLOOD COUNT (AUTO) 5.4 K/uL (3.6-10.2)
[2017-11-21 08:47] LABS: ALANINE AMINOTRANSFERASE 29 U/L (16-63); ALKALINE PHOSPHATASE 71 U/L (50-136); ASPARTATE AMINOTRANSFERASE 26 U/L (15-37); BILIRUBIN,TOTAL 0.4 mg/dL (0.2-1.0); CARBON DIOXIDE 30 mmol/L (21-32); CHLORIDE 103 mmol/L (98-107); CREATININE 1.2 mg/dL (0.6-1.3); GLUCOSE 99 mg/dL (74-106); MAGNESIUM 2.2 mg/dL (1.8-2.4); PHOSPHOROUS 3.2 mg/dL (2.5-4.9); POTASSIUM 3.9 mmol/L (3.5-5.1); TOTAL PROTEIN, SERUM 7.2 g/dL (6.4-8.2); UREA NITROGEN, BLOOD 26 mg/dL (7-18)
[2017-11-21 16:00] VITALS: BP 140/64
[2017-11-21 20:31] VITALS: BP 132/58
--- NOTE | 2017-11-21 22:00 | NUR ---
received patient, sitting in his room, pleasant , upon approach. compliant with medications, and staff direction. remains delusional, and grandiose, stating he is a billionaire, and has a 2 million dollar house. as of 2199, he appears to be asleep. no distress noted. will continue to monitor closely
[2017-11-22 07:30] VITALS: BP 115/83
--- NOTE | 2017-11-22 08:06 | NUR ---
DC Note: Patient will be discharged to [facility] [[address], [place] [address]; ] via ambulance. Spoke with Sathish at the facility who states they are ready to accept the patient today. Attempted to reach pt's son, Fransisco ([phone]) to notify about discharge and left voicemail. Pt is aware and agreeable with discharge plans. Patient will follow-up at the facility with Dr. Cobos (Project Architect) and Dr. Blanca (Psychiatrist).
[2017-11-22] MEDS ORDERED: INVEGA IM SCH (09:00)
[2017-11-22] MEDS: BENZTROPINE MESYLATE 0.5 MG TABLET PO SCH ×2 (09:40→17:01)
[2017-11-22] MEDS: DOCUSATE SODIUM 100 MG CAPSULE PO SCH ×2 (09:40→21:30)
[2017-11-22] MEDS: TRIAMCINOLONE ACET 0.1% CREAM 15 GM TUBE TOP SCH ×2 (09:40→17:45)
[2017-11-22] MEDS: CHOLECALCIFEROL 1,000 UNIT TABLET PO SCH (09:40)
[2017-11-22] MEDS: DIVALPROEX 125 MG TABLET.DR PO SCH ×3 (09:50→21:30)
[2017-11-22] MEDS ORDERED: PERMETHRIN 5% CREAM 60 GM TUBE TP ONE ×2 (14:00→21:00)
[2017-11-22 15:06] VITALS: BP 131/70
[2017-11-22 15:11] VITALS: BP 131/70
--- NOTE | 2017-11-22 22:00 | NUR ---
received to care, sitting at bedside, pleasant upon approach. remains on contact isolation for body rashes. elemite treatment done this evening. pt was educated about importance of tx, and is aware the tx will be washed off tomorrow morning, in the shower. he remains grandiose and delusional. believes he is a multi millionaire, and has a mansion worth 3 million dollars. reality orientation provided, but he remains very fixed in his beliefs. as of 2199, he appears to be asleep. no distress noted. will continue to monitor closely.
[2017-11-23 08:13] VITALS: BP 123/66
[2017-11-23] MEDS: BENZTROPINE MESYLATE 0.5 MG TABLET PO SCH ×2 (08:49→16:04)
[2017-11-23] MEDS: TRIAMCINOLONE ACET 0.1% CREAM 15 GM TUBE TOP SCH ×2 (08:49→16:04)
[2017-11-23] MEDS: DIVALPROEX 125 MG TABLET.DR PO SCH ×2 (08:49→12:05)
[2017-11-23] MEDS: CHOLECALCIFEROL 1,000 UNIT TABLET PO SCH (08:50)
[2017-11-23] MEDS: DOCUSATE SODIUM 100 MG CAPSULE PO SCH (08:50)
[2017-11-23] MEDS ORDERED: IVERMECTIN 3 MG TABLET PO ONE ×2 (14:00→14:15)
--- NOTE | 2017-11-23 14:46 | NUR ---
Updated DC Note: Patient will be discharged to [facility] [[address] [place] [address]; ] via ambulance. Spoke with Марина at the facility who states they are ready to accept the patient today. Attempted to reach pts sonFransisco ([phone]) to alert about discharge and left voicemail. Pt is aware and agreeable with discharge plans. Patient will follow-up at the facility with Dr. Foote (Architectural Examiner) and Dr. Blanca (Psychiatrist).
[2017-11-23 15:02] VITALS: BP 146/57
--- NOTE | 2017-11-23 17:34 | NUR ---
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 No aggressive or combative behavior. Left with all noted belongings and paperwork. Denies pain or discomfort. V/S stable. In no acute distress.
[2017-11-29] MEDS ORDERED: PERMETHRIN 5% CREAM 60 GM TUBE TP ONE (14:00)
== END 2017-11-23 17:30 | DRG 885 ==
LOC: ER 17:05 → GPS 18:32 → GPSOV 11-17 06:40 → GPS 11-17 07:55
PROVIDERS: ADMIT Psychiatry & Neurology Psychosomatic Medicine; ATTEND Internal Medicine
DX: F31.9 Bipolar disorder, unspecified (principal); F02.80 Dementia in other diseases classified elsewhere, unspecified severity, without behavioral disturbance, psychotic disturbance, mood disturbance, and anxiety; N17.0 Acute kidney failure with tubular necrosis; N18.9 Chronic kidney disease, unspecified; E44.0 Moderate protein-calorie malnutrition; G30.9 Alzheimer's disease, unspecified; N28.1 Cyst of kidney, acquired; B86 Scabies; D64.9 Anemia, unspecified; E55.9 Vitamin D deficiency, unspecified; E66.9 Obesity, unspecified; E78.5 Hyperlipidemia, unspecified; L21.0 Seborrhea capitis; Z22.322 Carrier or suspected carrier of Methicillin resistant Staphylococcus aureus; F01.50 Vascular dementia, unspecified severity, without behavioral disturbance, psychotic disturbance, mood disturbance, and anxiety; L40.9 Psoriasis, unspecified; Z68.27 Body mass index [BMI] 27.0-27.9, adult; Z85.72 Personal history of non-Hodgkin lymphomas; Z92.21 Personal history of antineoplastic chemotherapy; Z96.641 Presence of right artificial hip joint; Z87.81 Personal history of (healed) traumatic fracture; Z91.19 Patient's noncompliance with other medical treatment and regimen; Z79.899 Other long term (current) drug therapy
CPT/HCPCS: 36415; 71045; 76770; 80164; 80307; 82306; 83735; 83970; 84100; 84155; 84156; 84165; 84300; 84443; 85025; 87086; 93005; A4663; G0480; G0480-TC; J3490